=== PATIENT | female | born 1965 | race Caucasian/White ===

== ENCOUNTER → 2018-03-03 | Outpatient (CLI) | payer BC | END | disposition home or self-care (01) | LOC: CFH 12:13 | PROVIDERS: ATTEND Family Medicine | DX: M48.061 Spinal stenosis, lumbar region without neurogenic claudication (principal); M54.30 Sciatica, unspecified side; M15.0 Primary generalized (osteo)arthritis | CPT/HCPCS: 72148; 73523 ==

== ENCOUNTER 2019-07-27 08:25 | Inpatient (IN) | payer BC ==
[~2019-07-27] VITALS: Ht 157.5 cm; Wt 56.5 kg
--- NOTE | 2019-07-27 09:20 | NUR ---
[facility]
--- NOTE | 2019-07-27 09:37 | NUR ---
PT HERE WITH C/O GENERALIZED FATIGUE, NAUSEA WITH OCCASSIONAL VOMITTING. PT STATES SHE HAS AN EATING DISORDER AND HER PRIMARY CARE DOCTOR WAS "NO HELP AT ALL." PT STATES SYMPTOMS APPROX. X 3 WEEKS AND "CAN'T TAKE IT ANYMORE. I'M MISSING SO MUCH WORK." PT ALSO STATES STRONG ETOH HX AND STATES 2 WEEKS AGO SHE HAS CUT HER DRINKING IN HALF. PT AAO X 4, NAD, ROOM AIR, RESTING ON GURNEY. PT DRESSED IN GOWN AND ATTACHED TO MONITOR. CALL LIGHT WITHIN REACH AND SIDERAIL X [address] FAMILY AT BEDSIDE.
[2019-07-27] MEDS ORDERED: ONDANSETRON 2MG/ML, 2ML ONE (10:00)
[2019-07-27] MEDS ORDERED: SODIUM CHLORIDE 0.9% 1,000ML IVBOLUS ONE ×2 (10:00→12:00)
[2019-07-27] MEDS ORDERED: ONDANSETRON 2MG/ML, 2ML IVPush ONE (10:00)
--- NOTE | 2019-07-27 10:01 | NUR ---
REPORT GIVEN TO SOFIYA GILBERT. CARE TRANSFERRED.
[2019-07-27 10:06] LABS: BASOPHILS # (AUTO) 0.02 x10^3/uL (0-0.1); BASOPHILS % (AUTO) 0 % (0-1); EOSINOPHILS # (AUTO) 0.17 x10^3/uL (0-0.4); EOSINOPHILS % (AUTO) 2 % (1-7); LYMPHOCYTES # (AUTO) 0.39 x10^3/uL (1-3.4); LYMPHOCYTES % (AUTO) 5 % (22-44); MD NO; MEAN CORPUSCULAR HEMOGLOBIN 30.9 pg (27.0-34.8); MEAN CORPUSCULAR HGB CONC 32.7 g/dL (32.4-35.8); MEAN CORPUSCULAR VOLUME 94.7 fL (80-100); MEAN PLATELET VOLUME 8.4 fL (7.4-10.4); MONOCYTES # (AUTO) 0.55 x10^3/uL (0.2-0.8); MONOCYTES % (AUTO) 7 % (2-9); NEUTROPHILS # (AUTO) 7.37 x10^3/uL (1.8-6.8); NEUTROPHILS % (AUTO) 87 % (42-75); PLATELET COUNT 134 x10^3/uL (130-400); RED CELL DISTRIBUTION WIDTH 15.1 % (9.6-15.2)
--- NOTE | 2019-07-27 10:15 | NUR ---
REPORT FROM SOFIYA LOZANO. PT LAYING BACK IN BED WITH US STUDY AT BEDSIDE. NAD NOTED AT THIS TIME. IV SUPPLIES PREPARED AT BEDSIDE.
[2019-07-27 10:17] LABS: ALANINE AMINOTRANSFERASE 21 U/L (12-78); ALBUMIN 2.6 g/dL (3.4-5.0); ANION GAP 10 mmol/L (5-15); CALCIUM 8.6 mg/dL (8.5-10.1); CHLORIDE 86 mmol/L (98-107); CREATININE 0.65 mg/dL (0.55-1.02)
[2019-07-27 10:29] LABS: ALKALINE PHOSPHATASE 75 U/L (45-117); FREE T4 (FREE THYROXINE) 0.55 ng/dL (0.76-1.46); TOTAL PROTEIN 5.9 g/dL (6.4-8.2)
--- NOTE | 2019-07-27 11:05 | NUR ---
US COMPLETED. NAD NOTED IN PT. PT AMBULATES WELL INDEPENDENTLY TO BATHROOM FOR UA SPECIMEN. VSS.
[2019-07-27 11:51] LABS: MICROSCOPIC NOT IND
[2019-07-27] MEDS ORDERED: AZITHROMYCIN 500 MG in SODIUM CHLORIDE 0.9% 250 ML IV ONE (12:00)
[2019-07-27] MEDS ORDERED: CEFTRIAXONE PMX 1GM/50ML 50 ML IV ONE (12:00)
[2019-07-27 12:01] LABS: CULTURE INDICATED? NO
[2019-07-27] MEDS ORDERED: CEFTRIAXONE PMX 1GM/50ML 50 ML ONE (12:12)
--- NOTE | 2019-07-27 12:20 | NUR ---
PT AMBULATES WELL INDEPENDENTLY TO BATHROOM. IV ABX HUNG AFTER BLOOD CULTURES. PT BACK IN BED, IVF INFUSING. WATCHING TELEVISION. ADDITIONAL BLANKET APPLIED.
[2019-07-27] MEDS ORDERED: OMNIPAQUE 350 MG/ML, 75ML BOTTLE ONE (12:50)
[2019-07-27] MEDS ORDERED: SODIUM CHLORIDE 0.9% 1,000 ML IV ONE (13:20)
--- NOTE | 2019-07-27 13:20 | NUR ---
PT UP TO BATHROOM INDEPENDENTLY, NAD NOTED.
[2019-07-27] MEDS ORDERED: SODIUM CHLORIDE FLUSH 10ML SYR IVF PRN (13:30)
--- NOTE | 2019-07-27 14:28 | NUR ---
BREAK RN NOTE: REPORT RECEIEVED FROM PRIMARY RN OFELIA. PT A&O, RESPS EVEN ADN UNLABORED. PT DENIES PAIN. MEDICAL BED RECEIVED, REPORT CALLED TO SOFIYA ROSE. PT AWAITING TRANSPORT TO MEDICAL FLOOR AT THIS TIME.
[2019-07-27] MEDS ORDERED: BISACODYL 10 MG SUPP PR PRN (16:30)
[2019-07-27] MEDS ORDERED: PROMETHAZINE 25 MG/ML, 1ML IM PRN (16:30)
[2019-07-27] MEDS ORDERED: ONDANSETRON 2MG/ML, 2ML IVPush PRN (16:30)
[2019-07-27] MEDS ORDERED: DOCUSATE 100 MG CAPSULE PO PRN (16:30)
[2019-07-27] MEDS ORDERED: hydrALAzine 20 MG/ML, 1ML IVPush PRN (16:30)
[2019-07-27] MEDS ORDERED: OXYcodone IR 5MG TABLET PO PRN (16:30)
[2019-07-27] MEDS: NICOTINE 14MG/24 HR PATCH.TD24 TD SCH (16:30)
[2019-07-27] MEDS ORDERED: morphine SULFATE 10 MG/ML, 1ML IVPush PRN (16:30)
[2019-07-27] MEDS ORDERED: POLYETHYLENE GLYCOL 17 GM PACKET PO PRN (16:30)
[2019-07-27] MEDS ORDERED: ACETAMINOPHEN 325 MG TABLET PO PRN (16:30)
[2019-07-27] MEDS ORDERED: ONDANSETRON ODT 4 MG PO PRN (16:30)
[2019-07-27] MEDS ORDERED: LORazepam 1MG TABLET PO PRN ×4 (17:00)
[2019-07-27] MEDS ORDERED: LORazepam 0.5MG TABLET PO PRN (17:00)
[2019-07-27] MEDS ORDERED: LORazepam 2 MG/ML, 1ML IV PRN ×4 (17:00)
[2019-07-27 17:57] LABS: FREE T4 (FREE THYROXINE) 0.43 ng/dL (0.76-1.46)
[2019-07-27] MEDS: PIPERACILLIN/TAZO/PMX 3.375GM 50 ML IV SCH ×2 (18:11→23:19)
[2019-07-27] MEDS: GUAIFENESIN ER 600 MG TABLET PO SCH (18:11)
[2019-07-27] MEDS: SODIUM CHLORIDE 0.9% 1,000 ML IV SCH ×2 (18:11→23:18)
[2019-07-27] MEDS: HEPARIN 5,000 UNITS/ML, 1ML SQ SCH ×2 (18:13→23:19)
[2019-07-27] MEDS: LEVOTHYROXINE 50 MCG TABLET PO SCH (18:27)
[2019-07-27 19:47] VITALS: BP 115/75
[2019-07-27] MEDS: TRAZODONE 50MG TABLET PO PRN (21:57)
[2019-07-27 23:48] LABS: ANION GAP 10 mmol/L (5-15); CALCIUM 7.8 mg/dL (8.5-10.1); CHLORIDE 94 mmol/L (98-107); CREATININE 0.56 mg/dL (0.55-1.02)
[2019-07-28 02:59] VITALS: BP 112/74
[2019-07-28] MEDS: GUAIFENESIN ER 600 MG TABLET PO SCH ×2 (05:03→15:42)
[2019-07-28] MEDS: LEVOTHYROXINE 50 MCG TABLET PO SCH (05:03)
[2019-07-28] MEDS: PIPERACILLIN/TAZO/PMX 3.375GM 50 ML IV SCH ×3 (05:04→18:46)
[2019-07-28 06:45] LABS: BASOPHILS # (AUTO) 0.08 x10^3/uL (0-0.1); BASOPHILS % (AUTO) 1 % (0-1); EOSINOPHILS # (AUTO) 0.33 x10^3/uL (0-0.4); EOSINOPHILS % (AUTO) 4 % (1-7); LYMPHOCYTES # (AUTO) 0.51 x10^3/uL (1-3.4); LYMPHOCYTES % (AUTO) 7 % (22-44); MD NO; MEAN CORPUSCULAR HGB CONC 32.2 g/dL (32.4-35.8); MEAN CORPUSCULAR VOLUME 96.2 fL (80-100); MEAN PLATELET VOLUME 8.6 fL (7.4-10.4); MONOCYTES # (AUTO) 0.64 x10^3/uL (0.2-0.8); MONOCYTES % (AUTO) 8 % (2-9); NEUTROPHILS # (AUTO) 6.32 x10^3/uL (1.8-6.8); NEUTROPHILS % (AUTO) 80 % (42-75); PLATELET COUNT 139 x10^3/uL (130-400); RED BLOOD COUNT 5.61 x10^6/uL (3.82-5.3); RED CELL DISTRIBUTION WIDTH 15.7 % (9.6-15.2)
[2019-07-28 06:57] LABS: ALBUMIN 2.3 g/dL (3.4-5.0); CHLORIDE 95 mmol/L (98-107)
[2019-07-28 07:02] LABS: ALANINE AMINOTRANSFERASE 18 U/L (12-78); ALKALINE PHOSPHATASE 62 U/L (45-117); ANION GAP 7 mmol/L (5-15); BILIRUBIN,TOTAL 0.8 mg/dL (0.2-1.0); CHOL/HDL RATIO 2.5; CHOLESTEROL, TOTAL 143 mg/dL (140-239); CREATININE 0.62 mg/dL (0.55-1.02); HDL CHOL % 41 % (28-40); HDL CHOLESTEROL (DIRECT) 58 mg/dL (40-60); LDL CHOLESTEROL,CALCULATED 63 mg/dL (54-169); LDL/HDL RATIO 1.1 (0.5-3.0); TOTAL PROTEIN 5.4 g/dL (6.4-8.2); TRIGLYCERIDES 112 mg/dL (50-200); VLDL CHOLESTEROL 22 mg/dL (0-25)
[2019-07-28] MEDS ORDERED: ACETAMINOPHEN 325 MG TABLET PO PRN (07:30)
[2019-07-28 09:05] VITALS: BP 118/77
[2019-07-28] MEDS: SODIUM CHLORIDE 0.9% 1,000 ML IV SCH (10:41)
[2019-07-28] MEDS: HEPARIN 5,000 UNITS/ML, 1ML SQ SCH (12:23)
[2019-07-28] MEDS ORDERED: OMNIPAQUE 350 MG/ML, 150 ML BOTTLE ONE (14:15)
[2019-07-28] MEDS ORDERED: POTASSIUM CHLORIDE 20 MEQ TAB.ER.PRT PO ONE (14:30)
[2019-07-28 14:57] LABS: SODIUM,URINE RANDOM 29 mmol/L
[2019-07-28 15:21] LABS: OSMOLALITY,URINE 600 mOsm/kg (500-850)
[2019-07-28] MEDS: NICOTINE 14MG/24 HR PATCH.TD24 TD SCH (15:43)
[2019-07-28 16:18] VITALS: BP 152/92
[2019-07-28 18:56] VITALS: BP 144/89
[2019-07-29] MEDS: HEPARIN 5,000 UNITS/ML, 1ML SQ SCH ×2 (00:20→13:03)
[2019-07-29] MEDS: PIPERACILLIN/TAZO/PMX 3.375GM 50 ML IV SCH ×5 (00:41→23:59)
[2019-07-29] MEDS: GUAIFENESIN ER 600 MG TABLET PO SCH ×2 (04:30→16:53)
[2019-07-29 04:51] LABS: BASOPHILS # (AUTO) 0.04 x10^3/uL (0-0.1); BASOPHILS % (AUTO) 1 % (0-1); EOSINOPHILS # (AUTO) 0.38 x10^3/uL (0-0.4); EOSINOPHILS % (AUTO) 5 % (1-7); LYMPHOCYTES # (AUTO) 0.57 x10^3/uL (1-3.4); LYMPHOCYTES % (AUTO) 8 % (22-44); MD NO; MEAN CORPUSCULAR HEMOGLOBIN 30.9 pg (27.0-34.8); MEAN CORPUSCULAR HGB CONC 32.8 g/dL (32.4-35.8); MEAN CORPUSCULAR VOLUME 94.3 fL (80-100); MEAN PLATELET VOLUME 8.1 fL (7.4-10.4); MONOCYTES # (AUTO) 0.39 x10^3/uL (0.2-0.8); MONOCYTES % (AUTO) 5 % (2-9); NEUTROPHILS # (AUTO) 6.12 x10^3/uL (1.8-6.8); NEUTROPHILS % (AUTO) 82 % (42-75); PLATELET COUNT 160 x10^3/uL (130-400); RED BLOOD COUNT 5.61 x10^6/uL (3.82-5.3); RED CELL DISTRIBUTION WIDTH 15.8 % (9.6-15.2)
[2019-07-29 05:07] LABS: ANION GAP 6 mmol/L (5-15); CALCIUM 8.1 mg/dL (8.5-10.1); CHLORIDE 101 mmol/L (98-107)
[2019-07-29 05:08] LABS: % IRON SATURATION 19 % (20-55); CREATININE 0.57 mg/dL (0.55-1.02); IRON LEVEL 63 mcg/dL (50-170); TOTAL IRON BINDING CAPACITY 336 mcg/dL (250-450)
[2019-07-29] MEDS: LEVOTHYROXINE 50 MCG TABLET PO SCH (06:00)
[2019-07-29 07:59] VITALS: BP 149/100
[2019-07-29] MEDS: SODIUM CHLORIDE 0.9% 1,000 ML IV SCH (09:54)
[2019-07-29 12:53] VITALS: BP 149/89
[2019-07-29] MEDS: NICOTINE 14MG/24 HR PATCH.TD24 TD SCH (16:53)
[2019-07-29 19:05] VITALS: BP 161/103
[2019-07-30] MEDS: TRAZODONE 50MG TABLET PO PRN ×2 (00:03→22:01)
[2019-07-30] MEDS: HEPARIN 5,000 UNITS/ML, 1ML SQ SCH ×2 (00:03→10:46)
[2019-07-30] MEDS: SODIUM CHLORIDE 0.9% 1,000 ML IV SCH (00:03)
[2019-07-30 00:18] VITALS: BP 167/95
[2019-07-30] MEDS: GUAIFENESIN ER 600 MG TABLET PO SCH ×2 (04:30→18:27)
[2019-07-30] MEDS: PIPERACILLIN/TAZO/PMX 3.375GM 50 ML IV SCH ×3 (05:33→18:27)
[2019-07-30] MEDS: LEVOTHYROXINE 50 MCG TABLET PO SCH (05:33)
[2019-07-30 08:05] VITALS: BP 167/98
[2019-07-30] MEDS ORDERED: LIDOCAINE 1%, 10ML ONE (08:05)
[2019-07-30 13:05] VITALS: BP 162/98
[2019-07-30] MEDS: NICOTINE 14MG/24 HR PATCH.TD24 TD SCH (16:20)
[2019-07-30 21:49] VITALS: BP 146/97
[2019-07-31] MEDS: SODIUM CHLORIDE 0.9% 1,000 ML IV SCH ×2 (00:13→18:10)
[2019-07-31] MEDS: PIPERACILLIN/TAZO/PMX 3.375GM 50 ML IV SCH ×4 (00:13→18:10)
[2019-07-31] MEDS: HEPARIN 5,000 UNITS/ML, 1ML SQ SCH ×2 (00:14→12:20)
[2019-07-31] MEDS: GUAIFENESIN ER 600 MG TABLET PO SCH ×2 (03:51→16:39)
[2019-07-31] MEDS: LORazepam 2 MG/ML, 1ML IV PRN ×2 (03:51→18:30)
[2019-07-31] MEDS: LEVOTHYROXINE 50 MCG TABLET PO SCH (05:54)
[2019-07-31] MEDS ORDERED: PANTOPROZOLE 40MG TABLET PO SCH (06:00)
[2019-07-31 07:39] VITALS: BP 133/93
[2019-07-31 13:39] VITALS: BP_SYST 135; BP_SYST 154; BP_DIAS 105; BP_DIAS 93
[2019-07-31] MEDS: NICOTINE 14MG/24 HR PATCH.TD24 TD SCH (16:30)
[2019-07-31] MEDS: PANTOPRAZOLE 40 MG IV IVPush SCH (18:29)
[2019-07-31 19:35] VITALS: BP 129/84
[2019-08-01] MEDS: HEPARIN 5,000 UNITS/ML, 1ML SQ SCH ×2 (00:20→13:21)
[2019-08-01] MEDS: PIPERACILLIN/TAZO/PMX 3.375GM 50 ML IV SCH ×4 (00:21→17:56)
[2019-08-01] MEDS: LEVOTHYROXINE 50 MCG TABLET PO SCH (05:55)
[2019-08-01 07:57] VITALS: BP 130/84
[2019-08-01] MEDS: SODIUM CHLORIDE 0.9% 1,000 ML IV SCH (10:29)
[2019-08-01] MEDS ORDERED: LORazepam 2 MG/ML, 1ML IVPush ONE (11:00)
[2019-08-01] MEDS ORDERED: GADOTERATE 7.5 MMOL/15 ML SYR ONE (12:10)
[2019-08-01 13:18] VITALS: BP_SYST 145; BP_SYST 146; BP_DIAS 104; BP_DIAS 107
[2019-08-01] MEDS: NICOTINE 14MG/24 HR PATCH.TD24 TD SCH (15:55)
[2019-08-01] MEDS: PANTOPRAZOLE 40 MG IV IVPush SCH (17:55)
[2019-08-01 18:22] VITALS: BP 144/90
[2019-08-01] MEDS: LORazepam 2 MG/ML, 1ML IVPush PRN (19:25)
[2019-08-02] MEDS: HEPARIN 5,000 UNITS/ML, 1ML SQ SCH ×2 (00:20→17:50)
[2019-08-02] MEDS: PIPERACILLIN/TAZO/PMX 3.375GM 50 ML IV SCH ×4 (00:29→19:36)
[2019-08-02] MEDS: SODIUM CHLORIDE 0.9% 1,000 ML IV SCH ×2 (00:29→19:36)
[2019-08-02] MEDS: LEVOTHYROXINE 50 MCG TABLET PO SCH (04:59)
[2019-08-02 05:52] LABS: ANION GAP 11 mmol/L (5-15); CALCIUM 8.6 mg/dL (8.5-10.1); CHLORIDE 101 mmol/L (98-107); CREATININE 0.51 mg/dL (0.55-1.02)
[2019-08-02 07:17] VITALS: BP 138/96
[2019-08-02] MEDS: PANTOPRAZOLE 40 MG IV IVPush SCH (10:15)
[2019-08-02] MEDS ORDERED: FENTANYL PF 100 MCG/2ML IV PRN (12:30)
[2019-08-02] MEDS ORDERED: ONDANSETRON 2MG/ML, 2ML IV PRN (12:30)
[2019-08-02] MEDS ORDERED: ACETAMINOPHEN 325 MG TABLET PO PRN (12:30)
[2019-08-02] MEDS ORDERED: HYDROmorphone 2 MG/ML, 1ML IVPush PRN (12:30)
[2019-08-02 12:35] VITALS: BP 150/102
[2019-08-02] MEDS ORDERED: PROPOFOL 50 ML ONE (13:07)
[2019-08-02] MEDS ORDERED: MIDAZOLAM 1 MG/ML, 2ML ONE (13:20)
[2019-08-02 14:39] VITALS: BP 139/99
[2019-08-02] MEDS: NICOTINE 14MG/24 HR PATCH.TD24 TD SCH (16:30)
[2019-08-02] MEDS: LORazepam 2 MG/ML, 1ML IVPush PRN (19:36)
[2019-08-02 19:47] VITALS: BP 127/67
[2019-08-03] MEDS: PIPERACILLIN/TAZO/PMX 3.375GM 50 ML IV SCH ×4 (01:01→22:01)
[2019-08-03] MEDS: LEVOTHYROXINE 50 MCG TABLET PO SCH (05:47)
[2019-08-03 07:35] VITALS: BP 157/99
[2019-08-03] MEDS: PANTOPRAZOLE 40 MG IV IVPush SCH (08:24)
[2019-08-03] MEDS: HEPARIN 5,000 UNITS/ML, 1ML SQ SCH ×2 (08:27→22:01)
[2019-08-03] MEDS ORDERED: GADOTERATE 7.5 MMOL/15 ML SYR ONE (11:12)
[2019-08-03 12:05] VITALS: BP 158/100
[2019-08-03] MEDS: NICOTINE 14MG/24 HR PATCH.TD24 TD SCH (14:58)
[2019-08-03] MEDS: SODIUM CHLORIDE 0.9% 1,000 ML IV SCH (14:58)
--- NOTE | 2019-08-03 15:12 | NUR ---
TF RECOMMENDATION IF NEEDED: Osmolite 1.2 at 50 ml/hr -> slow initiation and advancement recommended. Monitor lytes. Will need 75 ml water flush x6/day or 110 ml water flush x4/day if no IVF Addendum: 08/03/19 at [address] Amended: Links added.
[2019-08-03 19:16] VITALS: BP 154/89
[2019-08-03] MEDS: LORazepam 2 MG/ML, 1ML IVPush PRN (22:01)
[2019-08-04] MEDS: PIPERACILLIN/TAZO/PMX 3.375GM 50 ML IV SCH (04:05)
[2019-08-04 05:07] LABS: ANION GAP 11 mmol/L (5-15); CALCIUM 8.2 mg/dL (8.5-10.1); CHLORIDE 100 mmol/L (98-107)
[2019-08-04 05:12] LABS: BASOPHILS # (AUTO) 0.05 x10^3/uL (0-0.1); BASOPHILS % (AUTO) 1 % (0-1); EOSINOPHILS # (AUTO) 0.33 x10^3/uL (0-0.4); EOSINOPHILS % (AUTO) 4 % (1-7); LYMPHOCYTES # (AUTO) 0.53 x10^3/uL (1-3.4); LYMPHOCYTES % (AUTO) 6 % (22-44); MD NO; MEAN CORPUSCULAR HEMOGLOBIN 31.2 pg (27.0-34.8); MEAN CORPUSCULAR VOLUME 97.2 fL (80-100); MEAN PLATELET VOLUME 8.8 fL (7.4-10.4); MONOCYTES # (AUTO) 0.29 x10^3/uL (0.2-0.8); MONOCYTES % (AUTO) 3 % (2-9); NEUTROPHILS % (AUTO) 87 % (42-75); PLATELET COUNT 205 x10^3/uL (130-400); RED BLOOD COUNT 5.59 x10^6/uL (3.82-5.3); RED CELL DISTRIBUTION WIDTH 16.3 % (9.6-15.2)
[2019-08-04 07:15] VITALS: BP 144/91
[2019-08-04] MEDS: POTASSIUM CHLORIDE 20 MEQ in LACTATED RINGERS 1,000 ML IV SCH ×2 (09:06→20:34)
[2019-08-04] MEDS: PANTOPROZOLE 40MG TABLET PO SCH (09:26)
[2019-08-04] MEDS: HEPARIN 5,000 UNITS/ML, 1ML SQ SCH ×2 (09:29→20:35)
[2019-08-04] MEDS: LEVOTHYROXINE 50 MCG TABLET PO SCH (09:29)
[2019-08-04 13:12] VITALS: BP 153/97
[2019-08-04] MEDS: NICOTINE 14MG/24 HR PATCH.TD24 TD SCH (16:04)
[2019-08-04 19:50] VITALS: BP 149/88
[2019-08-04] MEDS: LORazepam 2 MG/ML, 1ML IVPush PRN (20:35)
[2019-08-05 05:50] LABS: ANION GAP 7 mmol/L (5-15); CALCIUM 8.2 mg/dL (8.5-10.1); CHLORIDE 105 mmol/L (98-107)
[2019-08-05 05:51] LABS: CREATININE 0.39 mg/dL (0.55-1.02)
[2019-08-05] MEDS: POTASSIUM CHLORIDE 20 MEQ in LACTATED RINGERS 1,000 ML IV SCH ×2 (06:33→18:08)
[2019-08-05 07:21] VITALS: BP 167/96
[2019-08-05] MEDS: LEVOTHYROXINE 50 MCG TABLET PO SCH (09:00)
[2019-08-05] MEDS: PANTOPROZOLE 40MG TABLET PO SCH (09:00)
[2019-08-05] MEDS: HEPARIN 5,000 UNITS/ML, 1ML SQ SCH ×2 (10:33→19:50)
[2019-08-05 13:31] VITALS: BP 156/97
[2019-08-05] MEDS: NICOTINE 14MG/24 HR PATCH.TD24 TD SCH (15:05)
[2019-08-05 19:27] VITALS: BP_SYST 160; BP_SYST 164; BP_DIAS 101; BP_DIAS 104
[2019-08-05] MEDS: LORazepam 2 MG/ML, 1ML IVPush PRN (19:50)
[2019-08-05 20:45] VITALS: BP 154/96
[2019-08-06 03:11] VITALS: BP 163/112
[2019-08-06] MEDS ORDERED: hydrALAzine 20 MG/ML, 1ML IVPush PRN ×2 (03:30→22:00)
[2019-08-06] MEDS: POTASSIUM CHLORIDE 20 MEQ in LACTATED RINGERS 1,000 ML IV SCH ×3 (03:43→22:30)
[2019-08-06] MEDS: LEVOTHYROXINE 50 MCG TABLET PO SCH (05:32)
[2019-08-06] MEDS: PANTOPROZOLE 40MG TABLET PO SCH (05:32)
[2019-08-06 07:26] VITALS: BP 143/90
[2019-08-06] MEDS: HEPARIN 5,000 UNITS/ML, 1ML SQ SCH ×2 (08:53→21:00)
[2019-08-06] MEDS ORDERED: BUPIVACAINE/PF 0.5% ONE (13:32)
[2019-08-06] MEDS ORDERED: EPINEPHRINE 1 MG/ML, 1ML ONE (13:32)
[2019-08-06 13:37] VITALS: BP 152/92
[2019-08-06] MEDS: NICOTINE 14MG/24 HR PATCH.TD24 TD SCH (14:02)
[2019-08-06 15:02] LABS: ALANINE AMINOTRANSFERASE 17 U/L (12-78); ALBUMIN 2.4 g/dL (3.4-5.0); ANION GAP 11 mmol/L (5-15); BASOPHILS # (AUTO) 0.02 x10^3/uL (0-0.1); BASOPHILS % (AUTO) 0 % (0-1); CALCIUM 8.4 mg/dL (8.5-10.1); CHLORIDE 101 mmol/L (98-107); EOSINOPHILS # (AUTO) 0.17 x10^3/uL (0-0.4); EOSINOPHILS % (AUTO) 2 % (1-7); LYMPHOCYTES # (AUTO) 0.52 x10^3/uL (1-3.4); LYMPHOCYTES % (AUTO) 6 % (22-44); MD NO; MEAN CORPUSCULAR HEMOGLOBIN 30.8 pg (27.0-34.8); MEAN CORPUSCULAR HGB CONC 32.2 g/dL (32.4-35.8); MEAN CORPUSCULAR VOLUME 95.6 fL (80-100); MEAN PLATELET VOLUME 8.5 fL (7.4-10.4); MONOCYTES % (AUTO) 4 % (2-9); NEUTROPHILS # (AUTO) 7.36 x10^3/uL (1.8-6.8); NEUTROPHILS % (AUTO) 88 % (42-75); PLATELET COUNT 193 x10^3/uL (130-400); RED BLOOD COUNT 5.92 x10^6/uL (3.82-5.3); RED CELL DISTRIBUTION WIDTH 16.9 % (9.6-15.2)
[2019-08-06 15:05] LABS: ALKALINE PHOSPHATASE 50 U/L (45-117); BILIRUBIN,TOTAL 0.6 mg/dL (0.2-1.0); CREATININE 0.49 mg/dL (0.55-1.02); TOTAL PROTEIN 5.9 g/dL (6.4-8.2)
[2019-08-06] MEDS ORDERED: LABETALOL 5MG/ML, 20ML IV PRN (15:30)
[2019-08-06] MEDS ORDERED: MORPHINE SULFATE 4 MG/ML, 1ML IVPush PRN (15:30)
[2019-08-06] MEDS ORDERED: MEPERIDINE/PF 25MG/ML,1ML IVPush PRN (15:30)
[2019-08-06] MEDS ORDERED: PROMETHAZINE 25 MG/ML, 1ML IV PRN (15:30)
[2019-08-06] MEDS ORDERED: OXYcodone 5 MG/5 ML ORAL.SOL UDC PO PRN (15:30)
[2019-08-06] MEDS ORDERED: hydrALAzine 20 MG/ML, 1ML IV PRN (15:30)
[2019-08-06] MEDS ORDERED: HALOPERIDOL 5 MG/ML IV PRN (15:30)
[2019-08-06] MEDS ORDERED: ONDANSETRON 2MG/ML, 2ML ONE (15:39)
[2019-08-06] MEDS ORDERED: SUGAMMADEX 200 MG/2 ML IVPush ONE (15:39)
[2019-08-06] MEDS ORDERED: GLYCOPYRROLATE 0.2MG/1ML, 5ML ONE (15:39)
[2019-08-06] MEDS ORDERED: DEXAMETHASONE 4 MG/ML, 1ML ONE (15:39)
[2019-08-06] MEDS ORDERED: ALBUTEROL HFA 90 MCG/SPRAY ONE (15:39)
[2019-08-06] MEDS ORDERED: NEOSTIGMINE 1 MG/ML, 10ML ONE (15:39)
[2019-08-06] MEDS ORDERED: CEFOTETAN PMX 2GM/50ML 50 ML IVPB ONE (15:39)
[2019-08-06] MEDS ORDERED: ROCURONIUM 10 MG/ML,10ML ONE (15:39)
[2019-08-06] MEDS ORDERED: HYDROmorphone 1 MG/ML, 1ML INJ ONE (17:23)
[2019-08-06] MEDS: HYDROmorphone 2 MG/ML, 1ML IVPush PRN ×2 (17:28→17:41)
[2019-08-06] MEDS ORDERED: ADENOSINE 6 MG/2 ML ONE (18:26)
[2019-08-06 19:05] LABS: ALBUMIN 2.6 g/dL (3.4-5.0); ANION GAP 7 mmol/L (5-15); CALCIUM 8.7 mg/dL (8.5-10.1); CHLORIDE 103 mmol/L (98-107)
[2019-08-06 19:09] LABS: ALANINE AMINOTRANSFERASE 19 U/L (12-78); ALKALINE PHOSPHATASE 59 U/L (45-117); BILIRUBIN,TOTAL 0.5 mg/dL (0.2-1.0); CREATININE 0.87 mg/dL (0.55-1.02); TOTAL PROTEIN 6.6 g/dL (6.4-8.2)
[2019-08-06 19:40] LABS: MEAN CORPUSCULAR HEMOGLOBIN 30.7 pg (27.0-34.8); MEAN CORPUSCULAR HGB CONC 31.9 g/dL (32.4-35.8); MEAN PLATELET VOLUME 9.2 fL (7.4-10.4); PLATELET COUNT 233 x10^3/uL (130-400); RED BLOOD COUNT 6.16 x10^6/uL (3.82-5.3); RED CELL DISTRIBUTION WIDTH 16.2 % (9.6-15.2)
[2019-08-06 20:06] LABS: MD YES
[2019-08-06 20:09] LABS: BAND#(MANUAL) 0.85 x10^3/uL; BANDS%(MANUAL) 6 % (0-7); EOS#(MANUAL) 0.28 x10^3/uL (0.0-0.4); EOS% (MANUAL) 2 % (1-7); LYMPH#(MANUAL) 0.28 x10^3/uL (1-3.4); LYMPHS% (MANUAL) 2 % (22-44); MONOS#(MANUAL) 0.14 x10^3/uL (0.3-2.7); MONOS% (MANUAL) 1 % (2-9); REACTIVE LYMPHS # (MANUAL) 0.14 x10^3/uL (0-0); REACTIVE LYMPHS % (MANUAL) 1 % (0-0); SEGS% (MANUAL) 88 % (42-75)
[2019-08-06 20:11] LABS: <PLATELET ESTIMATE> ADEQUATE; <PLT MORPHOLOGY> NORMAL PLT MORPH; <RBC MORPHOLOGY> NORMAL
[2019-08-06] MEDS ORDERED: EPHEDRINE 50 MG/ML, 1ML ONE (20:14)
[2019-08-06] MEDS ORDERED: PROPOFOL 100 ML IV ONE (21:09)
[2019-08-06] MEDS ORDERED: AMPICILLIN/SULBACTAM 1,500 MG in SODIUM CHLORIDE 0.9% 50 ML IV SCH (22:00)
[2019-08-06] MEDS ORDERED: LACTULOSE 20 GM/30 ML UDC NG PRN (22:00)
[2019-08-06] MEDS ORDERED: BISACODYL 10 MG SUPP PR PRN (22:00)
[2019-08-06] MEDS ORDERED: GLUCAGON 1 MG IM PRN (22:00)
[2019-08-06] MEDS ORDERED: PHARMACY MAY ADJ FOR RENAL FX MC SCH (22:00)
[2019-08-06] MEDS: SODIUM CHLORIDE 0.9% 1,000 ML IV SCH (22:00)
[2019-08-06] MEDS ORDERED: ONDANSETRON 2MG/ML, 2ML IVPush PRN (22:00)
[2019-08-06] MEDS ORDERED: DEXTROSE 4 GM TAB.CHEW PO PRN (22:00)
[2019-08-06] MEDS ORDERED: DEXTROSE 50%, 50ML SYRINGE IVPush PRN (22:00)
[2019-08-06] MEDS ORDERED: LIDOCAINE-MPF 1%, 2ML ENDO PRN (22:00)
[2019-08-06] MEDS ORDERED: SENNA 176 MG/5 ML ORAL SOL NG PRN (22:00)
[2019-08-06] MEDS ORDERED: HEPARIN 5,000 UNITS/ML, 1ML SQ SCH (22:00)
[2019-08-06] MEDS ORDERED: SENNA/DOCUSATE TABLET NG PRN (22:00)
[2019-08-06] MEDS ORDERED: PROMETHAZINE 25 MG/ML, 1ML IM PRN (22:00)
[2019-08-06] MEDS ORDERED: LABETALOL 5MG/ML, 20ML IVPush PRN (22:00)
[2019-08-06] MEDS: PIPERACILLIN/TAZO/PMX 4.5GM 100 ML IV SCH (23:16)
[2019-08-07 02:15] LABS: ALBUMIN 1.9 g/dL (3.4-5.0); ANION GAP 11 mmol/L (5-15); CALCIUM 8.4 mg/dL (8.5-10.1); CHLORIDE 104 mmol/L (98-107)
[2019-08-07 02:18] LABS: ALANINE AMINOTRANSFERASE 17 U/L (12-78); ALKALINE PHOSPHATASE 39 U/L (45-117); BILIRUBIN,TOTAL 0.7 mg/dL (0.2-1.0); CREATININE 0.46 mg/dL (0.55-1.02); TOTAL PROTEIN 5.3 g/dL (6.4-8.2)
[2019-08-07] MEDS: POTASSIUM CHLORIDE 20 MEQ in LACTATED RINGERS 1,000 ML IV SCH (04:21)
[2019-08-07] MEDS: PANTOPRAZOLE 40 MG IV IVPush SCH (05:44)
[2019-08-07] MEDS: PIPERACILLIN/TAZO/PMX 4.5GM 100 ML IV SCH ×4 (05:44→22:56)
[2019-08-07] MEDS: FAMOTIDINE 20 MG/2 ML IVPush SCH ×2 (08:58→21:09)
[2019-08-07] MEDS: FENTANYL PF 100 MCG/2ML IV PRN ×2 (08:59→10:40)
[2019-08-07] MEDS: SODIUM CHLORIDE FLUSH 10ML SYR IVF SCH ×2 (08:59→21:09)
[2019-08-07] MEDS: PROPOFOL 100 ML IV PRN (10:51)
[2019-08-07] MEDS: LEVOTHYROXINE 50 MCG TABLET PO SCH (12:58)
[2019-08-07] MEDS: HEPARIN 5,000 UNITS/ML, 1ML SQ SCH ×2 (13:02→21:09)
[2019-08-07] MEDS: NICOTINE 14MG/24 HR PATCH.TD24 TD SCH (18:37)
[2019-08-07] MEDS: FENTANYL PF 100 MCG/2ML IVPush PRN (20:03)
[2019-08-07] MEDS: SODIUM CHLORIDE 0.9% 1,000 ML IV SCH (21:09)
[2019-08-08] MEDS: PROPOFOL 100 ML IV PRN ×2 (00:30→18:16)
[2019-08-08 04:26] LABS: ANION GAP 7 mmol/L (5-15); CHLORIDE 102 mmol/L (98-107); CREATININE 0.77 mg/dL (0.55-1.02)
[2019-08-08 04:43] LABS: BASOPHILS # (AUTO) 0.04 x10^3/uL (0-0.1); BASOPHILS % (AUTO) 0 % (0-1); EOSINOPHILS % (AUTO) 3 % (1-7); LYMPHOCYTES # (AUTO) 0.66 x10^3/uL (1-3.4); LYMPHOCYTES % (AUTO) 6 % (22-44); MD NO; MEAN CORPUSCULAR HEMOGLOBIN 31.5 pg (27.0-34.8); MEAN CORPUSCULAR VOLUME 95.6 fL (80-100); MEAN PLATELET VOLUME 9.9 fL (7.4-10.4); MONOCYTES # (AUTO) 0.43 x10^3/uL (0.2-0.8); MONOCYTES % (AUTO) 4 % (2-9); NEUTROPHILS # (AUTO) 9.72 x10^3/uL (1.8-6.8); NEUTROPHILS % (AUTO) 87 % (42-75); PLATELET COUNT 172 x10^3/uL (130-400); RED BLOOD COUNT 5.26 x10^6/uL (3.82-5.3); RED CELL DISTRIBUTION WIDTH 16.9 % (9.6-15.2)
[2019-08-08] MEDS: PANTOPRAZOLE 40 MG IV IVPush SCH (05:05)
[2019-08-08] MEDS: PIPERACILLIN/TAZO/PMX 4.5GM 100 ML IV SCH (05:05)
[2019-08-08] MEDS: LEVOTHYROXINE 50 MCG TABLET PO SCH (05:05)
[2019-08-08] MEDS ORDERED: MAGNESIUM SULFATE PMX 2GM/50ML 50 ML IV ONE (07:30)
[2019-08-08] MEDS: AMPICILLIN/SULBACTAM 3 GM in SODIUM CHLORIDE 0.9% 100 ML IV SCH ×3 (07:49→21:33)
[2019-08-08] MEDS: FAMOTIDINE 20 MG/2 ML IVPush SCH (09:00)
[2019-08-08] MEDS: SODIUM CHLORIDE FLUSH 10ML SYR IVF SCH ×2 (09:16→21:22)
[2019-08-08] MEDS: FENTANYL PF 100 MCG/2ML IVPush PRN (09:20)
[2019-08-08] MEDS: HEPARIN 5,000 UNITS/ML, 1ML SQ SCH ×2 (09:21→21:22)
[2019-08-08] MEDS: SERTRALINE 50MG TABLET PO SCH (11:35)
[2019-08-08] MEDS ORDERED: SODIUM CHLORIDE 0.9%, 500ML IVBOLUS ONE (14:30)
[2019-08-08] MEDS ORDERED: FUROSEMIDE 20 MG/2 ML IV ONE (16:00)
[2019-08-08] MEDS: SODIUM CHLORIDE 0.9% 1,000 ML IV SCH (21:33)
[2019-08-09] MEDS: FENTANYL PF 100 MCG/2ML IVPush PRN ×3 (00:10→22:19)
[2019-08-09] MEDS: AMPICILLIN/SULBACTAM 3 GM in SODIUM CHLORIDE 0.9% 100 ML IV SCH ×4 (01:36→19:57)
[2019-08-09] MEDS: PROPOFOL 100 ML IV PRN ×4 (01:37→19:58)
[2019-08-09 04:23] LABS: ANION GAP 6 mmol/L (5-15); CALCIUM 7.3 mg/dL (8.5-10.1); CHLORIDE 106 mmol/L (98-107); CREATININE 0.39 mg/dL (0.55-1.02)
[2019-08-09 04:37] LABS: BASOPHILS % (AUTO) 0 % (0-1); EOSINOPHILS % (AUTO) 5 % (1-7); LYMPHOCYTES # (AUTO) 0.48 x10^3/uL (1-3.4); LYMPHOCYTES % (AUTO) 6 % (22-44); MD NO; MEAN CORPUSCULAR HGB CONC 32.6 g/dL (32.4-35.8); MEAN CORPUSCULAR VOLUME 95.1 fL (80-100); MEAN PLATELET VOLUME 9.3 fL (7.4-10.4); MONOCYTES # (AUTO) 0.26 x10^3/uL (0.2-0.8); MONOCYTES % (AUTO) 3 % (2-9); NEUTROPHILS # (AUTO) 7.01 x10^3/uL (1.8-6.8); NEUTROPHILS % (AUTO) 86 % (42-75); PLATELET COUNT 150 x10^3/uL (130-400); RED BLOOD COUNT 4.96 x10^6/uL (3.82-5.3); RED CELL DISTRIBUTION WIDTH 16.9 % (9.6-15.2)
[2019-08-09] MEDS: LEVOTHYROXINE 50 MCG TABLET PO SCH (05:58)
[2019-08-09] MEDS: PANTOPRAZOLE 40 MG IV IVPush SCH (05:58)
[2019-08-09] MEDS: HEPARIN 5,000 UNITS/ML, 1ML SQ SCH ×2 (07:50→21:04)
[2019-08-09] MEDS: SODIUM CHLORIDE FLUSH 10ML SYR IVF SCH ×2 (07:50→21:04)
[2019-08-09] MEDS: SERTRALINE 50MG TABLET PO SCH (08:21)
[2019-08-09] MEDS: POTASSIUM CHLORIDE 10% 40 MEQ/30 ML UDC PO SCH ×2 (08:22→21:04)
[2019-08-09] MEDS ORDERED: FUROSEMIDE 20 MG/2 ML ONE (11:52)
[2019-08-09] MEDS ORDERED: FUROSEMIDE 20 MG/2 ML IV ONE (12:00)
[2019-08-09] MEDS: SODIUM CHLORIDE 0.9% 1,000 ML IV SCH (14:07)
[2019-08-10] MEDS: PROPOFOL 100 ML IV PRN (01:30)
[2019-08-10] MEDS: AMPICILLIN/SULBACTAM 3 GM in SODIUM CHLORIDE 0.9% 100 ML IV SCH ×2 (02:23→08:34)
[2019-08-10 04:25] LABS: BASOPHILS # (AUTO) 0.02 x10^3/uL (0-0.1); BASOPHILS % (AUTO) 0 % (0-1); EOSINOPHILS # (AUTO) 0.38 x10^3/uL (0-0.4); EOSINOPHILS % (AUTO) 5 % (1-7); LYMPHOCYTES # (AUTO) 0.51 x10^3/uL (1-3.4); LYMPHOCYTES % (AUTO) 6 % (22-44); MD NO; MEAN CORPUSCULAR HEMOGLOBIN 30.9 pg (27.0-34.8); MEAN CORPUSCULAR HGB CONC 33.1 g/dL (32.4-35.8); MEAN CORPUSCULAR VOLUME 93.4 fL (80-100); MEAN PLATELET VOLUME 9.6 fL (7.4-10.4); MONOCYTES # (AUTO) 0.32 x10^3/uL (0.2-0.8); MONOCYTES % (AUTO) 4 % (2-9); NEUTROPHILS % (AUTO) 86 % (42-75); PLATELET COUNT 141 x10^3/uL (130-400); RED BLOOD COUNT 4.77 x10^6/uL (3.82-5.3)
[2019-08-10] MEDS: PANTOPRAZOLE 40 MG IV IVPush SCH (05:57)
[2019-08-10] MEDS: LEVOTHYROXINE 50 MCG TABLET PO SCH (05:57)
[2019-08-10 07:28] LABS: ANION GAP 7 mmol/L (5-15); CALCIUM 7.4 mg/dL (8.5-10.1); CHLORIDE 109 mmol/L (98-107); CREATININE 0.54 mg/dL (0.55-1.02)
[2019-08-10] MEDS: FENTANYL PF 100 MCG/2ML IVPush PRN (08:35)
[2019-08-10] MEDS: SERTRALINE 50MG TABLET PO SCH (08:35)
[2019-08-10] MEDS: HEPARIN 5,000 UNITS/ML, 1ML SQ SCH (08:35)
[2019-08-10] MEDS: SODIUM CHLORIDE FLUSH 10ML SYR IVF SCH (08:36)
[2019-08-10] MEDS ORDERED: MORPHINE 30MG/30ML PCA.SYR IV PRN (12:00)
[2019-08-10] MEDS ORDERED: morphine SULFATE 10 MG/ML, 1ML IV ONE (12:00)
[2019-08-10] MEDS ORDERED: ATROPINE OPHTH SOLN 1%, 2ML PO PRN (12:00)
[2019-08-10] MEDS ORDERED: LORazepam 2 MG/ML, 1ML IV ONE (12:00)
[2019-08-10] MEDS ORDERED: LORazepam 2 MG/ML, 1ML IV PRN (12:00)
[2019-08-10] MEDS ORDERED: PROPOFOL 100 ML IV ONE (12:56)
[2019-08-10] MEDS ORDERED: PROMETHAZINE 25 MG/ML, 1ML IM PRN (13:00)
[2019-08-10] MEDS ORDERED: PROPOFOL 100 ML IV PRN (14:30)
== END 2019-08-10 23:28 | disposition expired | DRG 208 ==
LOC: ED 13:19 → EDIP 13:20 → ED 14:09 → 3N 14:59 → 4NW 07-28 16:07 → CCU 08-06 20:55 → 4NE 08-10 14:52
PROVIDERS: ADMIT Internal Medicine; ATTEND Family Medicine
PROC: 0WB83ZX Excision of Chest Wall, Percutaneous Approach, Diagnostic (ICD-10-PCS; 2019-07-30)
PROC: BH4BZZZ Ultrasonography of Chest Wall (ICD-10-PCS; 2019-07-30)
PROC: 0DJ08ZZ Inspection of Upper Intestinal Tract, Via Natural or Artificial Opening Endoscopic (ICD-10-PCS; principal; 2019-08-02 13:45)
PROC: 5A1945Z Respiratory Ventilation, 24-96 Consecutive Hours (ICD-10-PCS; 2019-08-06)
PROC: 0BH17EZ Insertion of Endotracheal Airway into Trachea, Via Natural or Artificial Opening (ICD-10-PCS; 2019-08-06)
PROC: 0DH63UZ Insertion of Feeding Device into Stomach, Percutaneous Approach (ICD-10-PCS; 2019-08-06)
DX: C34.90 Malignant neoplasm of unspecified part of unspecified bronchus or lung (principal); E43 Unspecified severe protein-calorie malnutrition; J96.01 Acute respiratory failure with hypoxia; J18.9 Pneumonia, unspecified organism; C79.31 Secondary malignant neoplasm of brain; E22.2 Syndrome of inappropriate secretion of antidiuretic hormone; I31.3 Pericardial effusion (noninflammatory); Z99.11 Dependence on respirator [ventilator] status; D75.1 Secondary polycythemia; E03.9 Hypothyroidism, unspecified; E87.6 Hypokalemia; F10.10 Alcohol abuse, uncomplicated; F12.10 Cannabis abuse, uncomplicated; F19.90 Other psychoactive substance use, unspecified, uncomplicated; F17.210 Nicotine dependence, cigarettes, uncomplicated; G47.00 Insomnia, unspecified; K22.2 Esophageal obstruction; Z51.5 Encounter for palliative care; Z80.3 Family history of malignant neoplasm of breast; Z86.59 Personal history of other mental and behavioral disorders; Z93.1 Gastrostomy status; Z90.49 Acquired absence of other specified parts of digestive tract; Z79.899 Other long term (current) drug therapy
CPT/HCPCS: 36415; 36600; 74220; 84145; 99285; J3490; S0020; 20206; 31622; 70460; 70491; 70553; 71045; 71046; 71260; 74177; 76700; 76942; 80048; 80053; 80061; 81003; 82378; 82803; 83036; 83540; 83550; 83605; 83690; 83735; 83880; 83930; 83935; 84100; 84300; 84436; 84439; 84443; 84478; 84484; 85025; 85610; 85730; 86301; 86304; 87040; 87070; 87081; 87205; 88305; 88341; 88342; 93005; 93306; 93308; 94002; 94003; B4087; G0378; J0171; J0295; J0456; J0696; J1100; J1170; J1644; J2250; J2270; J2405; J2543; J2704; J2710; J3010; J3480; Q9967; A9575; C9113; J0360; J1940; J2060; J3475; J7030; J7040; J7050; J7120